=== PATIENT | male | born 1995 | race Caucasian/White ===

== ENCOUNTER 2019-12-29 14:36 | Emergency (ER) | payer OTHER ==
[~2019-12-29] VITALS: Ht 172.7 cm; Wt 88.4 kg
[2019-12-29] MEDS ORDERED: NS 1,000 ML IV ONE (15:30)
--- NOTE | 2019-12-29 16:00 | REPVR ---
PROCEDURE INFORMATION: Exam: US Abdomen, Limited; Right Upper Quadrant Exam date and time: 12/29/2019 3:45 PM Age: 24 years old Clinical indication: Abdominal pain; Additional info: Ruq pain increases with food TECHNIQUE: Imaging protocol: US abdomen. Real time ultrasound with image documentation. Limited exam focused on the right upper quadrant. COMPARISON: No relevant prior studies available. FINDINGS: Liver: Fatty infiltration of the liver, without focal mass. Gallbladder: No cholelithiasis, gallbladder wall edema, or pericholecystic fluid. Common bile duct: Normal caliber of the incompletely visualized common bile duct measuring 4 mm in diameter. Pancreas: Obscuration of the pancreas by bowel gas. Right kidney: Normal right renal morphology. No hydronephrosis. IMPRESSION: No significant sonographic abnormality in the visualized right upper quadrant. Electronically signed by: Pablito Carrizales On 12/29/2019 16:00:04 PM
[2019-12-29] MEDS ORDERED: GASTROGRAFIN SOLUTION 30ML (Q9963) As Ordered ONE (16:21)
[2019-12-29 16:22] LABS: BASO % 0.5 % (0.0-1.0); EOS # 0.1 10^3/uL (0.0-0.5); EOS % 1.6 % (0.0-3.0); HEMATOCRIT 45.1 % (42.0-52.0); HEMOGLOBIN 15.6 g/dl (13.5-17.5); LYMPH % 23.6 % (24.0-44.0); MEAN CORPUSCULAR HGB CONC 34.6 g/dl (32.0-36.5); MEAN CORPUSCULAR VOLUME 92.4 fl (80.0-96.0); MONO # 0.4 10^3/uL (0.0-0.8); NEUTROPHILS # 2.8 10^3/uL (1.5-8.5); NEUTROPHILS % 65.1 % (36.0-66.0); PLATELET COUNT, AUTOMATED 220 10^3/uL (150-450); RED BLOOD COUNT 4.88 10^6/uL (4.30-6.10); WHITE BLOOD COUNT 4.3 10^3/uL (4.0-10.0)
[2019-12-29 16:33] LABS: INR 0.98; PROTHROMBIN TIME 13.2 SECONDS (12.5-14.3)
[2019-12-29 16:34] LABS: PARTIAL THROMBOPLASTIN TIME 30.1 SECONDS (24.2-38.5)
[2019-12-29] MEDS: GASTROGRAFIN SOLUTION 30ML PO SCH ×2 (16:34→17:15)
[2019-12-29 16:47] LABS: ALBUMIN 3.9 GM/DL (3.2-5.2); ALT/SGPT 30 U/L (12-78); BILIRUBIN,DIRECT 0.1 MG/DL (0.0-0.2); BILIRUBIN,TOTAL 0.5 MG/DL (0.2-1.0); BLOOD UREA NITROGEN 11 MG/DL (7-18); CALCIUM LEVEL 9.1 MG/DL (8.5-10.1); CARBON DIOXIDE LEVEL 30 MEQ/L (21-32); CHLORIDE LEVEL 106 MEQ/L (98-107); CREATININE FOR GFR 1.01 MG/DL (0.70-1.30); GLOMERULAR FILTRATION RATE > 60.0 (>60); GLUCOSE, FASTING 96 MG/DL (70-100); LIPASE 88 U/L (73-393); SODIUM LEVEL 139 MEQ/L (136-145); TOTAL PROTEIN 7.4 GM/DL (6.4-8.2)
[2019-12-29] MEDS ORDERED: POTASSIUM CHLORIDE 10 MEQ SR TABLET PO ONE (17:00)
[2019-12-29] MEDS ORDERED: ISOVUE-370 76% 100ML VIAL As Ordered ONE (17:45)
--- NOTE | 2019-12-29 18:13 | REPVR ---
PROCEDURE INFORMATION: Exam: CT Abdomen And Pelvis With Contrast Exam date and time: 12/29/2019 5:53 PM Age: 24 years old Clinical indication: Other: Abd pain x3 days with dark, tarry stools TECHNIQUE: Imaging protocol: Computed tomography of the abdomen and pelvis with intravenous contrast. Axial, coronal and sagittal reformatted images were created and reviewed. Radiation optimization: All CT scans at this facility use at least one of these dose optimization techniques: automated exposure control; mA and/or kV adjustment per patient size (includes targeted exams where dose is matched to clinical indication); or iterative reconstruction. Contrast material: ISOVUE 370; Contrast volume: 100 ml; Contrast route: INTRAVENOUS (IV); Other contrast: Oral; COMPARISON: GALLBLADDER US 12/29/2019 3:34 PM FINDINGS: Liver: Mild hepatomegaly. Diffuse hepatic steatosis. Gallbladder and bile ducts: No radiodense gallstones. No biliary ductal dilatation. Pancreas: Unremarkable. Spleen: Unremarkable. Adrenals: Unremarkable. Kidneys and ureters: No mass. No radiodense calculi. No hydronephrosis. Stomach and bowel: Mild colonic wall thickening, most conspicuous on right. Mild wall thickening of the terminal ileum. No obstruction. No pneumatosis. Appendix: Normal. Intraperitoneal space: No free fluid. No organized fluid collection. No free air. Vasculature: Unremarkable. No aneurysm. Lymph nodes: Small mesenteric lymph nodes, likely reactive. No pathologically enlarged lymph nodes. Urinary bladder: Unremarkable as visualized. Reproductive: Unremarkable. Bones/joints: No acute osseous abnormality. Soft tissues: Tiny, fat containing umbilical hernia. IMPRESSION: 1. Nonspecific colitis and terminal ileitis, as described above. Crohn's disease could produce this appearance. 2. Additional findings, as above. Electronically signed by: Ky Ashley On 12/29/2019 18:13:40 PM
[2019-12-29] MEDS ORDERED: CIPR-249 PO (18:57)
[2019-12-29] MEDS ORDERED: DICY10CA13 PO (18:57)
[2019-12-29] MEDS ORDERED: CIPROFLOXACIN 500MG TABLET PO ONE (19:00)
[2019-12-29] MEDS ORDERED: DICYCLOMINE 10 MG CAP PO ONE (19:00)
[2019-12-29 19:02] VITALS: BP 131/82
--- NOTE | 2019-12-30 01:02 | ED PDOC ---
Post-Departure Follow-Up i called patient with results, he has already been prescribed Cipro. Pt understood diligent hand hygiene and cleaning post using toilet. 100 12/30/19 JUAN OCHOA PA-C Dec 30, 2019 01:02
--- NOTE | 2019-12-30 14:55 | ED PDOC ---
Post-Departure Follow-Up ft teri hussein faxed formal report of ct abd/p for fu Steve Carvajal MD Dec 30, 2019 14:55
[2019-12-31] MEDS ORDERED: CIPR-249 PO (07:49)
== END 2019-12-29 19:14 | disposition home or self-care (01) ==
LOC: M ED 14:36
DX: R10.9 Unspecified abdominal pain (principal); R19.7 Diarrhea, unspecified; K76.0 Fatty (change of) liver, not elsewhere classified; K52.9 Noninfective gastroenteritis and colitis, unspecified
CPT/HCPCS: 74177; 76705; 80048; 80076; 81001; 83690; 85025; 85610; 85730; 87507; 96360; 96361; 99284; Q9967

== ENCOUNTER → 2020-02-07 | Outpatient (CLI) | payer SELFPAY ==
[~2020-02-07] MED LIST: CIPR-249 PO; DICY10CA13 PO
== END ==
LOC: M LABSMTC 08:59
PROVIDERS: ATTEND Pediatrics
DX: Z20.828 Contact with and (suspected) exposure to other viral communicable diseases (principal)